=== PATIENT | male | born 1940 | race Caucasian/White ===

== ENCOUNTER 2017-02-05 07:43 | Inpatient (IN) | payer MEDICARE, BC ==
[~2017-02-05] VITALS: Ht 180.3 cm; Wt 80.2 kg
[~2017-02-05 07:43] MED LIST: ALBUTEROL0.83 MG/ML IH; ASMANEX TW0.22 MG/A1 IH; ASPIRIN E.C. 8181 MG PO; ATARAX 25MG25 MG/TAB PO; ATROVENT INHALE14 GM IH; BETAPACE 80MG80 MG PO; CARDIZEM CD 24240 MG PO; CLEARLAX17 GM/Dose PO; COUMADIN 3MG3 MG/TAB PO; DIABETA2.5 MG PO; DILTIA XT120 MG PO; HCTZ 25MG25 MG PO; HYDROCHLOR50 MG PO; HYDROXYZINE HCL25 MG PO; HYTRIN10 M1 PO; LANOXIN 0.25M0.25 MG PO; MULTIPLE VITAMI1 CAP PO; NEB; OXYGEN; PHILLIPS1 TAB PO; POTASS CHL20 MEQ/15 PO; PRILOSEC 20MG20 MG PO; PROAIR HFA0.09 MG/AC IH; PROSCAR 5MG5 MG PO; PROSCAR5 MG PO; PROVENTIL0.09 MG/A1 IH; RT SPIRIVA18 MCG IH; SIMVASTATIN10 MG PO; SINGULAIR10 MG PO; SOTALOL PO; SPIRIVA18 MCG IH; THEO-DUR 1100 MG/TAB PO; TOPROL XL 50MG50 MG PO; TRAVATAN 2.5 M2.5 ML OP; TRAVATAN Z 5 ML5 ML OU; ZOLOFT 25MG25 MG PO
[2017-02-12] MEDS ORDERED: LASIX 40MG TABL40 MG PO (08:55)
[2017-02-12] MEDS ORDERED: EFFEXOR XR37.5 MG/CA PO (08:56)
[2017-02-12] MEDS ORDERED: K-DUR20 MEQ PO (08:58)
[2017-02-12] MEDS ORDERED: COUMADIN4 MG PO (09:00)
[2017-02-12] MEDS ORDERED: MIRALAX PA17 GM/Dose PO (09:01)
[2017-02-12] MEDS ORDERED: ZAROXOLYN 2.52.5 MG PO (09:02)
[2017-02-12 09:03] LABS: MEAN CELL VOLUME 87 fl (80.0-100.0); MEAN CORPUSCULAR HGB CONC 34 g/dl (33.0-37.0); MEAN PLATELET VOLUME 9.5 fl (7.4-10.4); PLATELET COUNT 241 K/mm3 (130-400); REDCELL DISTRIBUTION WIDTH-CV 15.8 % (11.5-14.5); WHITE BLOOD COUNT 12.9 K/mm3 (4.8-10.8)
[2017-02-12 09:04] LABS: HEMATOCRIT 33.9 % (42.0-52.0); HEMOGLOBIN 11.5 g/dl (13.5-18.0); MEAN CORPUSCULAR HEMOGLOBIN 29 pg (27.0-31.0)
[2017-02-12] MEDS ORDERED: XANAX .25M0.25 MG/TA PO (09:08)
[2017-02-12] MEDS ORDERED: IPRATROPIUM BROM3 M1 IH (09:10)
[2017-02-12 09:15] LABS: ADJUSTED CALCIUM 9.2 mg/dL (8.4-10.2); ALBUMIN 4.2 gm/dL (3.5-5.0); BILIRUBIN,TOTAL 0.9 mg/dL (0.0-1.0); CALCIUM 9.4 mg/dL (8.4-10.2); CREATININE, serum 1.69 mg/dL (0.66-1.25); MAGNESIUM 1.9 mg/dL (1.6-2.3); PROTHROMBIN TIME 46.9 SECONDS (9.7-12.8); TOTAL PROTEIN 7.8 gm/dL (6.4-8.2)
[2017-02-12 10:38] VITALS: BP 124/64; PULSE 69; TEMP 97.4
[2017-02-12 14:55] LABS: PH 5 (5-8); SQUAMOUS EPITHELIAL None Seen /hpf; URINE APPEARANCE Clear; URINE BACTERIA None Seen /hpf; URINE BILIRUBIN Negative (NEGATIVE); URINE BLOOD Negative (NEGATIVE); URINE COLOR Yellow; URINE GLUCOSE Negative (NEGATIVE); URINE KETONE Negative (NEGATIVE); URINE RBC 0-2 /hpf; URINE WBC 0-2 /hpf
[2017-02-12 15:54] VITALS: BP 136/87; PULSE 76; TEMP 97.4
[2017-02-12 20:30] VITALS: BP 122/72; PULSE 70; TEMP 97.6
[2017-02-12 21:10] VITALS: BP 126/68; PULSE 69; TEMP 98
[2017-02-13] VITALS (13 sets, daily range): BP systolic 89–124; BP diastolic 51–65; PULSE 69–71; TEMP 97.4–98.7
[2017-02-13 07:39] LABS: INR 3.9 (0.8-3.0)
[2017-02-13 07:57] LABS: CALCIUM 9.4 mg/dL (8.4-10.2); CREATININE, serum 1.38 mg/dL (0.66-1.25); POTASSIUM 3.1 mmol/L (3.4-5.0)
[2017-02-13 08:18] LABS: PROTHROMBIN TIME 45.4 SECONDS (9.7-12.8)
[2017-02-14] VITALS (7 sets, daily range): BP systolic 96–138; BP diastolic 57–80; PULSE 69–70; TEMP 97.8–98.3
[2017-02-14 08:20] LABS: CALCIUM 9.3 mg/dL (8.4-10.2); CREATININE, serum 1.6 mg/dL (0.66-1.25)
[2017-02-14 08:25] LABS: INR 4.5 (0.8-3.0)
[2017-02-14 08:33] LABS: PROTHROMBIN TIME 53.1 SECONDS (9.7-12.8)
== END 2017-02-14 14:30 | disposition home or self-care (01) | DRG 310 ==
LOC: MEDICAL 02-06 10:11
PROVIDERS: Internal Medicine Cardiovascular Disease
PROC: 5A2204Z Restoration of Cardiac Rhythm, Single (ICD-10-PCS; principal; 2017-02-14)
DX: I48.91 Unspecified atrial fibrillation (principal); E87.6 Hypokalemia; Z95.1 Presence of aortocoronary bypass graft; Z95.2 Presence of prosthetic heart valve; Z79.01 Long term (current) use of anticoagulants; Z95.0 Presence of cardiac pacemaker
CPT/HCPCS: A9502; J2250; J2785; J3010

== ENCOUNTER → 2017-12-13 | Outpatient (CLI) | payer MEDICARE, BC ==
[~2017-12-13] VITALS: Ht 180.3 cm; Wt 88.6 kg
[~2017-12-13] MED LIST changes: +COUMADIN4 MG PO; +EFFEXOR XR37.5 MG/CA PO; +INCRUSE EL62.5 MCG/A IH; +IPRATROPIUM BROM3 M1 IH; +K-DUR20 MEQ PO; +LASIX 40MG TABL40 MG PO; +MIRALAX PA17 GM/Dose PO; +XANAX .25M0.25 MG/TA PO; +ZAROXOLYN 2.52.5 MG PO
[2017-12-13 11:55] VITALS: BP 160/83; PULSE 73
[2017-12-13 14:40] VITALS: BP 134/86; PULSE 82
== END ==
LOC: COL.RAD 11:22
DX: J90 Pleural effusion, not elsewhere classified (principal)